=== PATIENT | male | born 1955 | race Caucasian/White ===

== ENCOUNTER → 2017-03-24 | Outpatient (CLI) | payer OTHER ==
[~2017-03-24] MED LIST: ARIP20 PO; CHLO100 PO; CHLO25A PO; CHLO50; CHLO50 PO; CIPR500; CITA20 PO; DOCU100 PO; DOXA1 PO; Driminate50 MG PO; FINA5; FISH1000 PO; FLUV50 PO; HYDACE5 PO; IBUP400 PO; LAVAP17G PO; LOPE2EL PO; MULVITMINE PO; NAPR500 PO; OXYM.05NI; PARO30 PO; PRAV20 PO; PSYL5.85P PO; TAMS.4ER PO; VITAMIN D PO; VITAMIN D31000 UNIT
[2017-03-24 13:39] LABS: Creatinine, Urine Random 24.4 mg/dL (27.00-270.00)
[2017-03-24 13:41] LABS: Microalb/Creat Ratio UR, Rand 40.984 mg/g (0.000-30.000)
== END ==
LOC: LAB 09:00
PROVIDERS: Registered Nurse
DX: E11.49 Type 2 diabetes mellitus with other diabetic neurological complication (principal)
CPT/HCPCS: 82043; 82570

== ENCOUNTER → 2019-05-04 | Outpatient (CLI) | payer OTHER ==
[2019-05-04 12:50] LABS: Source, Urine Clean Catch
[2019-05-04 19:54] LABS: Bilirubin, Urine Neg (Neg); Blood, Urine Neg (Neg); Glucose Qualitative, Urine Neg (Neg); Ketones, Urine Neg (Neg); Leukocyte Esterase, Urine Neg (Neg); Nitrite, Urine Neg (Neg); Protein, Urine Neg (Neg); Urobilinogen, Urine NORM (Normal)
[2019-05-04 20:02] LABS: Appearance, Urine Clear (Clear); Color, Urine Pale Yellow (P-Yellow)
== END ==
LOC: LAB SHORT 12:49
PROVIDERS: Family Medicine
DX: R32 Unspecified urinary incontinence (principal)
CPT/HCPCS: 81003

== ENCOUNTER 2021-07-29 08:45 | Day surgery (SDC) | payer OTHER ==
[~2021-07-29] VITALS: Ht 170.2 cm; Wt 58.7 kg
[~2021-07-29 08:45] MED LIST changes: +ABILIFY MYCITE30 M2 PO; +ACET325 PO; -CHLO50; +DRIMINATE50 M1 PO; +FISH OIL PO; +HYDHCL25 PO; +Kaopectate240 MG PO; +N ACETYL PO; +OXYB5ER PO; +PRENATAL TABLE1 EAC2 PO; -VITAMIN D31000 UNIT; +VITAMIN D31000 UNIT PO; +[UNRECOGNIZED DRUG - OTHER] PO
--- NOTE | 2021-07-29 09:24 | NUR ---
07/29/21 0924 Padmini Romero HISTORY,CHART, MEDICATIONS AND ALLERGIES REVIEWED BEFORE START OF PROCEDURE. PATIENT CONFIRMS NPO STATUS AND AGREES WITH SCHEDULED PROCEDURE. 3-LEAD EKG REVIEWED WITH PHYSICIAN PRIOR TO START OF PROCEDURE. MONITOR INTACT WITH CONTINUOUS PULSE OXIMETRY AND INTERMITTENT BP. SUPPLEMENTAL O2 TO BE TITRATED THROUGHOUT PROCEDURE TO MAINTAIN O2 SATURATION ABOVE 90%. PATIENT DETERMINED TO BE ASA APPROPRIATE FOR MODERATE SEDATION PRIOR TO START OF PROCEDURE BY DR. AGUILERA
--- NOTE | 2021-07-29 10:53 | NUR ---
Patient up to Ambulate independently. Gait steady. Discharge instructions reviewed with patient. Patient verbalizes understanding. Copy given to patient to take home, WELL PT'S CAREGIVER. Patient States Post-Procedure ride home has been arranged WITH CAREGIVER. Discharged via wheelchair to private car for ride home.
== END 2021-07-29 10:53 | disposition home or self-care (01) ==
LOC: ORSCMMR 08:45 → ORD 09:30 → ORSCMMR 09:30
PROVIDERS: Internal Medicine Gastroenterology
PROC: 0DB98ZX Excision of Duodenum, Via Natural or Artificial Opening Endoscopic, Diagnostic (ICD-10-PCS; principal; 2021-07-29 09:30)
PROC: 0DBM8ZX Excision of Descending Colon, Via Natural or Artificial Opening Endoscopic, Diagnostic (ICD-10-PCS; principal; 2021-07-29 09:30)
PROC: 0DB78ZX Excision of Stomach, Pylorus, Via Natural or Artificial Opening Endoscopic, Diagnostic (ICD-10-PCS; principal; 2021-07-29 09:30)
PROC: 0DB58ZX Excision of Esophagus, Via Natural or Artificial Opening Endoscopic, Diagnostic (ICD-10-PCS; principal; 2021-07-29 09:30)
PROC: 0DBK8ZX Excision of Ascending Colon, Via Natural or Artificial Opening Endoscopic, Diagnostic (ICD-10-PCS; principal; 2021-07-29 09:30)
DX: R10.13 Epigastric pain (principal); K62.5 Hemorrhage of anus and rectum; K21.00 Gastro-esophageal reflux disease with esophagitis, without bleeding; B96.81 Helicobacter pylori [H. pylori] as the cause of diseases classified elsewhere; K29.70 Gastritis, unspecified, without bleeding; K59.00 Constipation, unspecified; K64.8 Other hemorrhoids; K44.9 Diaphragmatic hernia without obstruction or gangrene; G47.33 Obstructive sleep apnea (adult) (pediatric); E78.00 Pure hypercholesterolemia, unspecified; R62.59 Other lack of expected normal physiological development in childhood; Z79.899 Other long term (current) drug therapy
CPT/HCPCS: 88305; 88342; A9270; J2250; J3010; J7120

== ENCOUNTER 2022-07-15 07:52 | Day surgery (SDC) | payer OTHER ==
[2022-07-15] VITALS (15 sets, daily range): BP systolic 125–157; BP diastolic 79–105
[~2022-07-15] VITALS: Ht 165.1 cm; Wt 62.9 kg
[~2022-07-15 07:52] MED LIST changes: +Chlorpromazine50 MG PO; +DOC250 PO; +DRAMAMINE25 M2 PO; +FISH OIL 1,2001 EAC7 PO; +HYDPAM50 PO; +Hydroxyzine HCl50 MG PO; +LIDO700A20 TOP; +MAGCIT300 PO; +MIRALAX17 GM PO; +N ACETYLCYSTEINE PO; +Nexium40 MG PO; +OMEP20ER PO; +PROBIOTIC1 EA13 PO; +PSYSENPA PO; +[UNRECOGNIZED DRUG - CODE] PO
--- NOTE | 2022-07-15 08:33 | NUR ---
Ambulatory in Day Surgery. History, Chart, Medications and Allergies reviewed before start of procedure WITH PT AND CAREGIVER. Lungs clear T/O to Auscultation. Patient confirms NPO status and agrees with scheduled surgery. Pre-Op teaching done. Pt verbalizes understanding. Patient States Post-Procedure ride home has been arranged.
--- NOTE | 2022-07-15 08:54 | NUR ---
07/15/22 0854 Chichi Downs HISTORY, CHART, MEDICATIONS AND ALLERGIES REVIEWED BEFORE START OF PROCEDURE. PATIENT CONFIRMS NPO STATUS AND AGREES WITH SCHEDULED PROCEDURE. 3-LEAD EKG REVIEWED WITH PHYSICIAN PRIOR TO START OF PROCEDURE. MONITOR INTACT WITH CONTINUOUS PULSE OXIMETRY,CAPNOGRAPHY, 3-LEAD EKG, INTERMITTENT BP. SUPPLEMENTAL O2 TO BE TITRATED THROUGHOUT PROCEDURE TO MAINTAIN O2 SATURATION ABOVE 90%. PATIENT DETERMINED TO BE ASA APPROPRIATE FOR PROPOFOL SEDATION PRIOR TO START OF PROCEDURE BY .
--- NOTE | 2022-07-15 09:16 | NUR ---
Discharge instructions reviewed with patient and caregiver, Maxine; both verbalize understanding. Copy given to patient to take home. Discharged via wheelchair to private car for ride home.
== END 2022-07-15 09:33 | disposition home or self-care (01) ==
LOC: ORSCMMR 07:52 → ORD 08:30 → ORSCMMR 09:33
PROVIDERS: Internal Medicine Gastroenterology
PROC: 0DB48ZX Excision of Esophagogastric Junction, Via Natural or Artificial Opening Endoscopic, Diagnostic (ICD-10-PCS; principal; 2022-07-15 08:30)
DX: R13.10 Dysphagia, unspecified (principal); Z87.19 Personal history of other diseases of the digestive system; Z87.11 Personal history of peptic ulcer disease; K31.9 Disease of stomach and duodenum, unspecified; K44.9 Diaphragmatic hernia without obstruction or gangrene; G47.30 Sleep apnea, unspecified; E78.00 Pure hypercholesterolemia, unspecified; Z79.899 Other long term (current) drug therapy
CPT/HCPCS: 88305; C1726; J2704; J7120

== ENCOUNTER 2022-10-08 14:13 | Observation (INO) | payer OTHER ==
[~2022-10-08] VITALS: Ht 167.6 cm; Wt 54.2 kg
[2022-10-08 15:37] LABS: Hematocrit 39.7 % (37.0-53.0); Hemoglobin 13.1 g/dL (13.5-17.5); Mean Corpuscular HGB 30.6 pg (26.0-34.0); Mean Corpuscular Volume 93 fL (80-100); Mean Platelet Volume 10.3 fL (9.1-12.4); Platelet Count 265 K/mm3 (150-400); RDW Coefficient Variation 13.7 % (11.7-14.2); RDW Standard Deviation 46.9 fL (35.1-46.3); Red Blood Cell Count 4.28 M/mm3 (4.30-5.90); White Blood Cell Count 29.94 K/mm3 (4.00-11.30)
[2022-10-08 15:56] LABS: Albumin, Blood 3.7 g/dL (3.4-5.0); Bilirubin, Total 0.5 mg/dL (0.1-1.0); Bun/Creatinine Ratio 26.4 (12.0-20.0); Calcium, Blood 9.5 mg/dL (8.5-10.1); Creatinine, Blood 1.06 mg/dL (0.60-1.20); Globulin, Blood 3.7 g/dL (2.2-4.0); Potassium, Blood 4.6 mmol/L (3.5-5.5); Total Protein, Blood 7.4 g/dL (6.4-8.2)
[2022-10-08] MEDS ORDERED: Hydroxyzine HCl50 MG (16:27)
[2022-10-08] MEDS ORDERED: LAMOTRIGINE25 M4 PO (16:29)
[2022-10-08] MEDS ORDERED: ESOMEPRAZOLE MA40 MG PO (16:29)
[2022-10-08 16:50] LABS: BASOPHILS PERCENT MAN 0 % (0-2); EOSINOPHILS PERCENT MAN 0 % (0-6); LYMPHOCYTES % ATYPICAL MANUAL 2 % (0-0); LYMPHOCYTES ABSOLUTE MAN 11.37 K/mm3 (0.84-5.20); LYMPHOCYTES PERCENT MAN 36 % (21-46); MONOCYTES ABSOLUTE MAN 1.49 K/mm3 (0.16-1.47); MONOCYTES PERCENT MAN 5 % (4-13); NEUTROPHILS ABSOLUTE MAN 17.06 K/mm3 (1.96-9.15); SEG NEUTROPHILS PERCENT MAN 57 % (41-73); TOTAL CELLS COUNTED 100
[2022-10-08 18:53] LABS: Source, Urine Voided
[2022-10-08 18:58] LABS: Appearance, Urine Hazy (Clear); Bilirubin, Urine Neg (Neg); Blood, Urine Neg (Neg); Color, Urine Yellow (P-Yellow); Glucose Qualitative, Urine Neg (Neg); Ketones, Urine 3+ (Neg); Leukocyte Esterase, Urine 3+ (Neg); Nitrite, Urine Neg (Neg); Protein, Urine 2+ (Neg); Specific Gravity, Urine 1.025 (1.003-1.022); Urobilinogen, Urine NORM (Normal)
[2022-10-08 19:15] LABS: Squamous Epithelial Cells Few /hpf (Few); Transitional Epithelial Cells Few /hpf (0-Rare)
[2022-10-08 19:16] LABS: Bacteria Many /hpf; Calcium Oxalate Crystals Rare /hpf; White Blood Cells, Urine 50-100 /hpf (0-5)
[2022-10-08] MEDS ORDERED: CHLO50 PO ×2 (20:58→21:01)
[2022-10-08 21:42] VITALS: BP 117/62
[2022-10-09 04:00] VITALS: BP 135/71
--- NOTE | 2022-10-09 04:40 | NUR ---
SHIFT SUMMARY. PT ARRIVED ON UNIT EARLY IN SHIFT. AOX2, PLEASANT, COOPERATIVE WITH CARE. EASILY REDIRECTABLE. STEADY 1-PERSON TRANSFER. EDUCATED SOCK LINING EXAMINER LIGHT BUT HAS NOT USED IT THUS FAR. SATTING WELL ON ROOM AIR. INCONTINENT WITH 1 BM PASSED THUS FAR. FLUIDS RUNNING THROUGHOUT SHIFT PER ORDER. IV FUNCTIONING WELL. NO PAIN REPORTED. PT FOLLOWS DIRECTION WELL. HAS BEEN SLEEPING THROUGH MOST OF SHIFT AFTER MED PASS AND ASSESSMENT. BED LOCKED IN LOWEST POSITION. CALL LIGHT LEFT WITHIN REACH.
[2022-10-09 05:58] LABS: Hematocrit 33.9 % (37.0-53.0); Hemoglobin 10.8 g/dL (13.5-17.5); Mean Corpuscular HGB 30.3 pg (26.0-34.0); Mean Corpuscular HGB Conc 31.9 g/dL (31.5-36.5); Mean Corpuscular Volume 95 fL (80-100); Mean Platelet Volume 10.4 fL (9.1-12.4); Platelet Count 231 K/mm3 (150-400); RDW Coefficient Variation 13.7 % (11.7-14.2); RDW Standard Deviation 47.8 fL (35.1-46.3); Red Blood Cell Count 3.57 M/mm3 (4.30-5.90); White Blood Cell Count 27.21 K/mm3 (4.00-11.30)
[2022-10-09 07:17] VITALS: BP 115/72
[2022-10-09 15:43] VITALS: BP 104/74
--- NOTE | 2022-10-09 19:05 | NUR ---
PATIENT IS ALERT AND ORIENTED TO SELF AND FOLLOWING DIRECTIONS. HE C/O LEFT ABDOMINAL PAIN AND PAIN WITH SWALLOWING. HE DOES GAG WHEN TAKING BITES OF JELLO BUT TOLERATES LIQUIDS FINE. THE PATIENT WENT FOR THE ESOPHAGRAM THIS MORNING.
[2022-10-09 20:28] VITALS: BP 111/72
[2022-10-10 03:20] VITALS: BP 118/67
--- NOTE | 2022-10-10 05:00 | NUR ---
SHIFT SUMMARY ADMITTED FOR N/V. POOR APPETITE AND WT. LOSS. FULL CODE. 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 BARIUM SWALLOW AND ESOPHOGRAM PERFORMED ON PREVIOUS SHIFT. HX OF ESOPHAGEAL STRICTURES AND DILATIONS. PLAN IS TO ADVANCE DIET TOLERATED, UPPER ENDOSCOPY & DILATION VERSUS DC HOME. RX CRUSHED W/APPLESAUCE. 1 ASSIST W/FWW - BRP. NS @ 100 ML/HR INFUSING.
[2022-10-10 06:08] LABS: BASOPHILS ABSOLUTE AUTO 0.08 K/mm3 (0.00-0.23); BASOPHILS PERCENT AUTO 0 % (0-2); EOSINOPHILS ABSOLUTE AUTO 0.52 K/mm3 (0.00-0.68); EOSINOPHILS PERCENT AUTO 2 % (0-6); Hematocrit 33.7 % (37.0-53.0); Hemoglobin 10.8 g/dL (13.5-17.5); IMMATURE GRAN PERCENT AUTO 0 % (0-1); LYMPHOCYTES ABSOLUTE AUTO 13.27 K/mm3 (0.84-5.20); LYMPHOCYTES PERCENT AUTO 55 % (21-46); MONOCYTES ABSOLUTE AUTO 0.92 K/mm3 (0.16-1.47); MONOCYTES PERCENT AUTO 4 % (4-13); Mean Corpuscular HGB 30.4 pg (26.0-34.0); Mean Corpuscular Volume 95 fL (80-100); Mean Platelet Volume 10.1 fL (9.1-12.4); NEUTROPHILS ABSOLUTE AUTO 9.36 K/mm3 (1.96-9.15); NEUTROPHILS PERCENT AUTO 39 % (41-73); Platelet Count 221 K/mm3 (150-400); RDW Coefficient Variation 13.8 % (11.7-14.2); RDW Standard Deviation 47.8 fL (35.1-46.3); Red Blood Cell Count 3.55 M/mm3 (4.30-5.90); White Blood Cell Count 24.25 K/mm3 (4.00-11.30)
[2022-10-10 07:09] LABS: Bun/Creatinine Ratio 17.5 (12.0-20.0); Calcium, Blood 8.4 mg/dL (8.5-10.1); Creatinine, Blood 0.97 mg/dL (0.60-1.20); Potassium, Blood 3.9 mmol/L (3.5-5.5)
[2022-10-10 07:16] VITALS: BP 107/63
[2022-10-10] MEDS ORDERED: AMOCLA875 PO (13:52)
--- NOTE | 2022-10-10 16:05 | NUR ---
DISCHARGE NOTE PT DISCHARGED TO HOME, PICKED UP BY ONE OF HIS CAREGIVERS. IV REMOVED. DISCHARGE INFORMATION AND EDUCATION PROVIDED TO THE PT. MEDICATIONS FAXED TO THE PHARMACY OF HIS CHOICE. FIRE SAFETY PROTOCOLS AND PROCEDURES MAINTAINED THROUGHOUT THE SHIFT.
== END 2022-10-10 15:32 | disposition home or self-care (01) ==
LOC: ER 14:13 → MEDS 14:14
PROVIDERS: Emergency Medicine; Family Medicine; Nurse Practitioner Acute Care; Physician Assistant; ADMIT Internal Medicine
DX: K22.2 Esophageal obstruction (principal); D72.829 Elevated white blood cell count, unspecified; N39.0 Urinary tract infection, site not specified; R62.50 Unspecified lack of expected normal physiological development in childhood; F91.9 Conduct disorder, unspecified; E78.5 Hyperlipidemia, unspecified; D64.9 Anemia, unspecified; N18.30 Chronic kidney disease, stage 3 unspecified; G47.33 Obstructive sleep apnea (adult) (pediatric); Z79.899 Other long term (current) drug therapy
CPT/HCPCS: 36415; 71046; 74220; 80048; 80053; 81001; 85025; 85027; 87077; 87086; 87186; 96361; 96372; 96374; 99285-25; A9270; G0378; J1650; J2405; J7030

== ENCOUNTER 2022-11-02 12:30 | Inpatient (IN) | payer OTHER ==
[~2022-11-02] VITALS: Ht 165.1 cm; Wt 54.0 kg
[~2022-11-02 12:30] MED LIST changes: +AMOCLA875 PO; +ESOMEPRAZOLE MA40 MG PO; +Hydroxyzine HCl50 MG; +LAMOTRIGINE25 M4 PO
[2022-11-02 14:29] LABS: Hematocrit 36.9 % (37.0-53.0); Hemoglobin 11.9 g/dL (13.5-17.5); Mean Corpuscular HGB Conc 32.2 g/dL (31.5-36.5); Mean Corpuscular Volume 93 fL (80-100); Mean Platelet Volume 10.6 fL (9.1-12.4); Platelet Count 177 K/mm3 (150-400); RDW Coefficient Variation 14.1 % (11.7-14.2); RDW Standard Deviation 47.5 fL (35.1-46.3); Red Blood Cell Count 3.97 M/mm3 (4.30-5.90); White Blood Cell Count 30.76 K/mm3 (4.00-11.30)
[2022-11-02 14:49] LABS: Albumin, Blood 3.3 g/dL (3.4-5.0); Albumin/Globulin Ratio 0.9 (0.8-1.8); Bilirubin, Total 0.6 mg/dL (0.1-1.0); Calcium, Blood 9.7 mg/dL (8.5-10.1); Creatinine, Blood 1.16 mg/dL (0.60-1.20); Globulin, Blood 3.5 g/dL (2.2-4.0); Potassium, Blood 4.6 mmol/L (3.5-5.5); Total Protein, Blood 6.8 g/dL (6.4-8.2)
[2022-11-02 15:53] LABS: BAND PERCENT MAN 12 % (0-8); BASOPHILS PERCENT MAN 0 % (0-2); EOSINOPHILS PERCENT MAN 0 % (0-6); LYMPHOCYTES ABSOLUTE MAN 11.38 K/mm3 (0.84-5.20); LYMPHOCYTES PERCENT MAN 37 % (21-46); MONOCYTES ABSOLUTE MAN 2.46 K/mm3 (0.16-1.47); MONOCYTES PERCENT MAN 8 % (4-13); NEUTROPHILS ABSOLUTE MAN 16.91 K/mm3 (1.96-9.15); SEG NEUTROPHILS PERCENT MAN 43 % (41-73); TOTAL CELLS COUNTED 100
[2022-11-02 16:12] LABS: Source, Urine Clean Catch
[2022-11-02 16:21] LABS: Appearance, Urine Cloudy (Clear); Bilirubin, Urine Neg (Neg); Blood, Urine 3+ (Neg); Color, Urine Yellow (P-Yellow); Glucose Qualitative, Urine Neg (Neg); Ketones, Urine 1+ (Neg); Leukocyte Esterase, Urine 3+ (Neg); Nitrite, Urine Neg (Neg); Protein, Urine 2+ (Neg); Specific Gravity, Urine 1.025 (1.003-1.022); Urobilinogen, Urine NORM (Normal)
[2022-11-02 16:32] LABS: Calcium Oxalate Crystals Few /hpf
[2022-11-02 16:33] LABS: Bacteria Many /hpf; Squamous Epithelial Cells Few /hpf (Few); White Blood Cells, Urine TNTC /hpf (0-5)
[2022-11-02 23:14] VITALS: BP 121/67
--- NOTE | 2022-11-03 00:57 | NUR ---
ADMIT NOTE PT BROUGHT TO ROOM FROM [facility] BED. PT ON 2 L O2 VIA NC AND SATS ABOVE 90%. PT ORIENTED TO ROOM WITH CALL LIGHT WITHIN REACH AND BED IN LOWEST POSITION WITH BED ALARM SET.
[2022-11-03] MEDS ORDERED: REMERON1510 PO (01:08)
[2022-11-03] MEDS ORDERED: [UNRECOGNIZED DRUG - OTHER] PO (01:10)
[2022-11-03 01:27] VITALS: BP 106/60
[2022-11-03 04:24] VITALS: BP 112/71
--- NOTE | 2022-11-03 04:26 | NUR ---
SHIFT SUMMARY PT TRANSFERRED TO UNIT AT 2301. PT IS DEVELOPMENTALLY DELAYED, ANSWERS BASIC QUESTIONS AND FOLLOWS SIMPLE COMMANDS. UNABLE TO DO MED REC ON ADMISSION DUE TO PTS COGNITIVE ABILITY. PT STATES HE DOES NOT KNOW HIS MEDICATIONS AND TO ASK HIS CAREGIVER "RYNE" WHO SHOULD BE IN TODAY. PT WAS ON 2L O2 VIA NC BUT HAD AN EPISODE WHERE HE SATS DROPPED TO 87%. INCREASED O2 TO 5L AND PT HAS BEEN TOLERATING WELL AND SATS HAVE BEEN ABOVE 92%. PT IS ON CONTINUOUS O2 MONITORING. PT IS CURRENTLY ON ENHANCED PRECAUTIONS, COVID TEST IS NEGATIVE, RESPIRATORY PANEL NEEDS TO BE COLLECTED. ORDERED CARE MANAGMENT AND SPEECH THERAPY CONSULT. PT WAS HAVING SOME TROUBLE WITH SPITTING OUT SPUTUM. GAVE PT YANKER AND EDUCATED ON USE. BED ALARM IN PLACE WITH BED IN THE LOWEST POSITION WITH CALL LIGHT WITHIN REACH.
[2022-11-03 05:09] LABS: Hematocrit 33.2 % (37.0-53.0); Hemoglobin 10.7 g/dL (13.5-17.5); Mean Corpuscular HGB 29.8 pg (26.0-34.0); Mean Corpuscular HGB Conc 32.2 g/dL (31.5-36.5); Mean Corpuscular Volume 93 fL (80-100); Mean Platelet Volume 10.5 fL (9.1-12.4); Platelet Count 167 K/mm3 (150-400); RDW Coefficient Variation 14.1 % (11.7-14.2); RDW Standard Deviation 47.6 fL (35.1-46.3); Red Blood Cell Count 3.59 M/mm3 (4.30-5.90); White Blood Cell Count 20.05 K/mm3 (4.00-11.30)
[2022-11-03 05:35] LABS: Albumin, Blood 2.8 g/dL (3.4-5.0); Bilirubin, Total 0.9 mg/dL (0.1-1.0); Bun/Creatinine Ratio 17.1 (12.0-20.0); Calcium, Blood 8.4 mg/dL (8.5-10.1); Creatinine, Blood 1.11 mg/dL (0.60-1.20); Globulin, Blood 2.9 g/dL (2.2-4.0); Potassium, Blood 3.9 mmol/L (3.5-5.5); Total Protein, Blood 5.7 g/dL (6.4-8.2)
[2022-11-03 06:12] LABS: BAND PERCENT MAN 5 % (0-8); BASOPHILS PERCENT MAN 0 % (0-2); EOSINOPHILS PERCENT MAN 1 % (0-6); LYMPHOCYTES % ATYPICAL MANUAL 3 % (0-0); LYMPHOCYTES ABSOLUTE MAN 6.41 K/mm3 (0.84-5.20); LYMPHOCYTES PERCENT MAN 29 % (21-46); METAMYELOCYTE PERCENT MAN 1 % (0-0); MONOCYTES PERCENT MAN 3 % (4-13); NEUTROPHILS ABSOLUTE MAN 12.63 K/mm3 (1.96-9.15); SEG NEUTROPHILS PERCENT MAN 58 % (41-73); TOTAL CELLS COUNTED 100
[2022-11-03 07:45] VITALS: BP 102/61
[2022-11-03 09:00] LABS: Adenovirus Not Detected (NOT DETECT); Bordetella pertussis Not Detected (NOT DETECT); Chlamydophila pneumoniae Not Detected (NOT DETECT); Coronavirus 229E Not Detected (NOT DETECT); Coronavirus HKU1 Not Detected (NOT DETECT); Coronavirus NL63 Not Detected (NOT DETECT); Coronavirus OC43 Not Detected (NOT DETECT); Human Metapneumovirus Not Detected (NOT DETECT); Human Rhinovirus/Enterovirus Detected (NOT DETECT); Influenza A/2009-H1 Not Detected (NOT DETECT); Influenza A/H1 Not Detected (NOT DETECT); Influenza A/H3 Not Detected (NOT DETECT); Influenza B Not Detected (NOT DETECT); Parainfluenza Virus 1 Not Detected (NOT DETECT); Parainfluenza Virus 2 Not Detected (NOT DETECT); Parainfluenza Virus 3 Not Detected (NOT DETECT); Parainfluenza Virus 4 Not Detected (NOT DETECT); Respiratory Syncytial Virus Not Detected (NOT DETECT); SARS-Cov-2 (COVID-19), BioFire Not Detected (NOT DETECT)
[2022-11-03 09:01] LABS: Mycoplasma pneumoniae Not Detected (NOT DETECT)
[2022-11-03] MEDS ORDERED: FISH OIL PO (16:12)
[2022-11-03 16:22] VITALS: BP 104/67
--- NOTE | 2022-11-03 18:20 | NUR ---
SHIFT SUMMARY PT WORKED WITH OT/PT TODAY. AMBULATING WELL ONLY WITH ASSISTANCE WITH CORDS AND LINES. TITRATED DOWN TO 2L FROM 4L THIS MORNING. AND THEN FROM 2L TO RA THIS AFTERNOON. TOLERATING WELL. PT TESTED POSITIVE FOR RHINO VIRUS. MED REC UPDATED FROM NURSING HOME FAX. PT SEEN BY [facility]. NO OTHER ACUTE CHANGES IN ASSESSMENT AT THIS TIME. CALL LIGHT IN REACH. UP IN CHAIR, COLORING. PT HOPEFUL TO GO HOME TOMORROW. OVERALL, POOR APPETITE, SEEMS TO BE DUE TO THE TEXTURE OF HIS FOOD. PT IS NOT A FAN OF [place]. NO OTHER ACUTE CHANGES IN ASSESSMENT AT THIS TIME. VS REVIEWED. CALL LIGHT IN REACH.
[2022-11-03 20:54] VITALS: BP 119/69
[2022-11-04 02:29] VITALS: BP 115/68
--- NOTE | 2022-11-04 04:53 | NUR ---
SHIFT SUMMARY PT A&O X4, HAS CONGENITAL DEVELOPMENTAL DELAY. CALM AND COOPERATIVE WITH CARE. PT IS CURRENTLY ON RA, TOLERATING WELL WITH SATS ABOVE 92%. INDEPENDENT USING THE URINAL, SBA TO BATHROOM DUE TO LINES. DENIES ANY PAIN, DISCOMFORT, OR SOB. ST ORDERS IN PLACE AND FOLLOWED. PT DOES NOT LIKE PUREE DIET, OFFERED THICKENED SPRITE AND ICECREAM. BED IN LOWEST POSITION WITH CALL LIGHT IN REACH AND BED ALARM SET. PT CALLS APPROPRIATELY.
[2022-11-04 05:41] LABS: Hematocrit 30.1 % (37.0-53.0); Hemoglobin 9.7 g/dL (13.5-17.5); Mean Corpuscular HGB Conc 32.2 g/dL (31.5-36.5); Mean Corpuscular Volume 93 fL (80-100); Mean Platelet Volume 10.8 fL (9.1-12.4); Platelet Count 169 K/mm3 (150-400); RDW Coefficient Variation 14.1 % (11.7-14.2); RDW Standard Deviation 47.7 fL (35.1-46.3); Red Blood Cell Count 3.23 M/mm3 (4.30-5.90); White Blood Cell Count 17.78 K/mm3 (4.00-11.30)
[2022-11-04 06:09] LABS: BAND PERCENT MAN 1 % (0-8); BASOPHILS ABSOLUTE MAN 0.17 K/mm3 (0.00-0.23); BASOPHILS PERCENT MAN 1 % (0-2); EOSINOPHILS ABSOLUTE MAN 1.24 K/mm3 (0.00-0.68); EOSINOPHILS PERCENT MAN 7 % (0-6); LYMPHOCYTES % ATYPICAL MANUAL 4 % (0-0); LYMPHOCYTES ABSOLUTE MAN 5.33 K/mm3 (0.84-5.20); LYMPHOCYTES PERCENT MAN 26 % (21-46); MONOCYTES ABSOLUTE MAN 0.53 K/mm3 (0.16-1.47); MONOCYTES PERCENT MAN 3 % (4-13); NEUTROPHILS ABSOLUTE MAN 10.49 K/mm3 (1.96-9.15); SEG NEUTROPHILS PERCENT MAN 58 % (41-73); TOTAL CELLS COUNTED 100
[2022-11-04 06:11] LABS: Albumin, Blood 2.4 g/dL (3.4-5.0); Albumin/Globulin Ratio 0.8 (0.8-1.8); Bilirubin, Total 0.6 mg/dL (0.1-1.0); Bun/Creatinine Ratio 12.6 (12.0-20.0); Calcium, Blood 8.2 mg/dL (8.5-10.1); Creatinine, Blood 0.87 mg/dL (0.60-1.20); Potassium, Blood 3.6 mmol/L (3.5-5.5); Total Protein, Blood 5.4 g/dL (6.4-8.2)
[2022-11-04 07:44] VITALS: BP 111/72
[2022-11-04 15:19] VITALS: BP 110/68
--- NOTE | 2022-11-04 18:01 | NUR ---
SHIFT SUMMARY PT AOX2-3, MAKES HIS NEEDS KNOWN. NO COMPLAINTS THIS SHIFT. PT'S APPETITE SEEMS TO BE IMPROVING. PT HAD A LARGE BM THIS SHIFT. SPOKE WITH HIS CAREGIVER THIS SHIFT FOR UPDATES. PT IS A SBA. CALL LIGHT WITHIN REACH, BED IN THE LOWEST POSITION. WILL REPORT TO ONCOMING NURSE.
[2022-11-04 20:43] VITALS: BP 123/71
[2022-11-05 02:10] VITALS: BP 128/75
--- NOTE | 2022-11-05 05:17 | NUR ---
SHIFT SUMMARY NO ACUTE EVENTS DURING SHIFT. PATIENT ABLE TO MAKE NEEDS KNOW. BED IN LOW POSITION. CALL LIGHT IN REACH. PATIENT CALLS APPROPRIATELY.
[2022-11-05 05:42] LABS: Hematocrit 30.3 % (37.0-53.0); Hemoglobin 9.6 g/dL (13.5-17.5); Mean Corpuscular HGB 29.5 pg (26.0-34.0); Mean Corpuscular HGB Conc 31.7 g/dL (31.5-36.5); Mean Corpuscular Volume 93 fL (80-100); Mean Platelet Volume 10.3 fL (9.1-12.4); Platelet Count 196 K/mm3 (150-400); RDW Standard Deviation 47.5 fL (35.1-46.3); Red Blood Cell Count 3.25 M/mm3 (4.30-5.90); White Blood Cell Count 18.34 K/mm3 (4.00-11.30)
[2022-11-05 06:11] LABS: Bun/Creatinine Ratio 9.7 (12.0-20.0); Calcium, Blood 8.4 mg/dL (8.5-10.1); Creatinine, Blood 0.93 mg/dL (0.60-1.20); Potassium, Blood 3.3 mmol/L (3.5-5.5)
[2022-11-05 06:45] LABS: BASOPHILS PERCENT MAN 0 % (0-2); EOSINOPHILS PERCENT MAN 0 % (0-6); LYMPHOCYTES % ATYPICAL MANUAL 1 % (0-0); LYMPHOCYTES PERCENT MAN 65 % (21-46); MONOCYTES ABSOLUTE MAN 0.73 K/mm3 (0.16-1.47); MONOCYTES PERCENT MAN 4 % (4-13); SEG NEUTROPHILS PERCENT MAN 30 % (41-73); TOTAL CELLS COUNTED 100
[2022-11-05 07:38] VITALS: BP 113/71
[2022-11-05] MEDS ORDERED: OMEGA-3 FISH O1 EA13 PO (14:23)
[2022-11-05] MEDS ORDERED: AMOCLA875 PO (14:24)
--- NOTE | 2022-11-05 16:09 | NUR ---
DISCHARGE NOTE PT DISCHARGED TO HOME WITH HIS CAREGIVER. IV REMOVED. PERSONAL BELONGINGS RETURNED. DISCHARGE MEDICATIONS AND INFORMATION PROVIDED. MEDICATIONS FAXED TO THE PHARMACY OF HIS CHOICE.
== END 2022-11-05 15:54 | disposition home or self-care (01) | DRG 871 ==
LOC: ER 12:30 → MEDS 20:44
PROVIDERS: Family Medicine; Hospitalist; Physician Assistant; ADMIT Hospitalist
DX: A41.81 Sepsis due to Enterococcus (principal); J12.89 Other viral pneumonia; J96.01 Acute respiratory failure with hypoxia; J69.0 Pneumonitis due to inhalation of food and vomit; N39.0 Urinary tract infection, site not specified; Z16.11 Resistance to penicillins; Z66 Do not resuscitate; Z20.822 Contact with and (suspected) exposure to COVID-19; R13.10 Dysphagia, unspecified; B97.89 Other viral agents as the cause of diseases classified elsewhere; G47.30 Sleep apnea, unspecified; D63.8 Anemia in other chronic diseases classified elsewhere; N18.30 Chronic kidney disease, stage 3 unspecified; N40.0 Benign prostatic hyperplasia without lower urinary tract symptoms; E78.00 Pure hypercholesterolemia, unspecified; K22.2 Esophageal obstruction; Z90.49 Acquired absence of other specified parts of digestive tract; Z98.890 Other specified postprocedural states
CPT/HCPCS: 0202U; 36415; 71045; 80048; 80053; 81001; 85025; 85060; 87077; 87086; 87186; 92610; 94664; 94762; 96361; 96365; 97110; 97116; 97161; 97165; 97530; 97535; 99285-25; A9270; C9113; J1650; J2543; J7030

== ENCOUNTER 2023-01-06 21:00 | Emergency (ER) | payer OTHER ==
[~2023-01-06] VITALS: Ht 167.6 cm; Wt 72.6 kg
[~2023-01-06 21:00] MED LIST changes: +OMEGA-3 FISH O1 EA13 PO; +PROM25 PO; +REMERON1510 PO; +[UNRECOGNIZED DRUG - OTHER] PO
[2023-01-06 21:33] LABS: Hematocrit 34.9 % (37.0-53.0); Hemoglobin 10.9 g/dL (13.5-17.5); Mean Corpuscular HGB 30.3 pg (26.0-34.0); Mean Corpuscular HGB Conc 31.2 g/dL (31.5-36.5); Mean Corpuscular Volume 97 fL (80-100); Platelet Count 140 K/mm3 (150-400); RDW Coefficient Variation 16.1 % (11.7-14.2); RDW Standard Deviation 57.6 fL (35.1-46.3); White Blood Cell Count 23.79 K/mm3 (4.00-11.30)
[2023-01-06 21:55] LABS: Albumin, Blood 3.4 g/dL (3.4-5.0); Albumin/Globulin Ratio 1.1 (0.8-1.8); Bilirubin, Total 0.3 mg/dL (0.1-1.0); Bun/Creatinine Ratio 28.4 (12.0-20.0); Calcium, Blood 9.4 mg/dL (8.5-10.1); Creatinine, Blood 0.95 mg/dL (0.60-1.20); Globulin, Blood 3.2 g/dL (2.2-4.0); Potassium, Blood 4.1 mmol/L (3.5-5.5); Total Protein, Blood 6.6 g/dL (6.4-8.2)
[2023-01-06 22:21] LABS: Source, Urine Clean Catch
[2023-01-06 22:35] LABS: BASOPHILS PERCENT MAN 0 % (0-2); EOSINOPHILS ABSOLUTE MAN 0.23 K/mm3 (0.00-0.68); EOSINOPHILS PERCENT MAN 1 % (0-6); LYMPHOCYTES ABSOLUTE MAN 17.36 K/mm3 (0.84-5.20); LYMPHOCYTES PERCENT MAN 73 % (21-46); MONOCYTES ABSOLUTE MAN 0.71 K/mm3 (0.16-1.47); MONOCYTES PERCENT MAN 3 % (4-13); NEUTROPHILS ABSOLUTE MAN 5.47 K/mm3 (1.96-9.15); SEG NEUTROPHILS PERCENT MAN 23 % (41-73); TOTAL CELLS COUNTED 100
[2023-01-06 22:38] LABS: Appearance, Urine Clear (Clear); Bilirubin, Urine Neg (Neg); Blood, Urine Neg (Neg); Glucose Qualitative, Urine Neg (Neg); Ketones, Urine Neg (Neg); Leukocyte Esterase, Urine 1+ (Neg); Nitrite, Urine Neg (Neg); Protein, Urine Neg (Neg); Specific Gravity, Urine 1.005 (1.003-1.022); Urobilinogen, Urine NORM (Normal)
[2023-01-06 22:55] VITALS: BP 122/74
[2023-01-06 23:05] LABS: Influenza A, PCR NEGATIVE (NEGATIVE); Influenza B, PCR NEGATIVE (NEGATIVE); Resp Syncytial Virus, PCR NEGATIVE (NEGATIVE); SARS-Cov-2 (COVID-19) PCR, MMC NEGATIVE (NEGATIVE)
[2023-01-06] MEDS ORDERED: FISH OIL 1,0001 EA10 PO (23:13)
[2023-01-06 23:30] LABS: Color, Urine Pale Yellow (P-Yellow)
[2023-01-06 23:31] LABS: Bacteria Few /hpf; Red Blood Cells, Urine 0-2 /hpf (0-2); Squamous Epithelial Cells Not Seen /hpf (Few); White Blood Cells, Urine 0-2 /hpf (0-5)
== END 2023-01-06 23:45 | disposition home or self-care (01) ==
LOC: ER 21:00
PROVIDERS: Physician Assistant; Student in an Organized Health Care Education/Training Program
DX: J02.8 Acute pharyngitis due to other specified organisms (principal); B97.89 Other viral agents as the cause of diseases classified elsewhere; C95.90 Leukemia, unspecified not having achieved remission; Z79.899 Other long term (current) drug therapy; Z20.822 Contact with and (suspected) exposure to COVID-19
CPT/HCPCS: 0241U; 71046; 80053; 81001; 85025; 87077; 87086; 87186; 99283-25

== ENCOUNTER 2023-01-16 20:17 | Emergency (ER) | payer OTHER ==
[~2023-01-16] VITALS: Ht 167.6 cm; Wt 68.0 kg
[~2023-01-16 20:17] MED LIST changes: +FISH OIL 1,0001 EA10 PO
[2023-01-16 20:54] LABS: BASOPHILS PERCENT AUTO 0 % (0-2); EOSINOPHILS ABSOLUTE AUTO 0.26 K/mm3 (0.00-0.68); EOSINOPHILS PERCENT AUTO 1 % (0-6); Hematocrit 36.9 % (37.0-53.0); Hemoglobin 11.7 g/dL (13.5-17.5); Mean Corpuscular HGB 30.4 pg (26.0-34.0); Mean Corpuscular HGB Conc 31.7 g/dL (31.5-36.5); Mean Corpuscular Volume 96 fL (80-100); Mean Platelet Volume 11.5 fL (9.1-12.4); Platelet Count 184 K/mm3 (150-400); RDW Coefficient Variation 15.3 % (11.7-14.2); RDW Standard Deviation 53.6 fL (35.1-46.3); Red Blood Cell Count 3.85 M/mm3 (4.30-5.90); White Blood Cell Count 30.09 K/mm3 (4.00-11.30)
[2023-01-16 21:13] LABS: IMMATURE GRAN PERCENT AUTO 0 % (0-1); LYMPHOCYTES ABSOLUTE AUTO 23.23 K/mm3 (0.84-5.20); LYMPHOCYTES PERCENT AUTO 77 % (21-46); MONOCYTES ABSOLUTE AUTO 0.59 K/mm3 (0.16-1.47); MONOCYTES PERCENT AUTO 2 % (4-13); NEUTROPHILS ABSOLUTE AUTO 5.81 K/mm3 (1.96-9.15); NEUTROPHILS PERCENT AUTO 19 % (41-73)
[2023-01-16 21:18] LABS: Albumin, Blood 3.7 g/dL (3.4-5.0); Bilirubin, Total 0.2 mg/dL (0.1-1.0); Bun/Creatinine Ratio 28.7 (12.0-20.0); Calcium, Blood 9.1 mg/dL (8.5-10.1); Creatinine, Blood 1.08 mg/dL (0.60-1.20); Globulin, Blood 3.7 g/dL (2.2-4.0); Potassium, Blood 4.5 mmol/L (3.5-5.5); Total Protein, Blood 7.4 g/dL (6.4-8.2)
[2023-01-16] MEDS ORDERED: PRAHYD1AEA PR (23:04)
[2023-01-16 23:20] VITALS: BP 124/79
== END 2023-01-16 23:21 | disposition home or self-care (01) ==
LOC: ER 20:17
PROVIDERS: Emergency Medicine
DX: K64.4 Residual hemorrhoidal skin tags (principal); Z79.899 Other long term (current) drug therapy
CPT/HCPCS: 80053; 85025; 86850; 86900; 86901; 99283

== ENCOUNTER 2023-06-12 20:11 | Emergency (ER) | payer OTHER ==
[~2023-06-12] VITALS: Ht 167.6 cm; Wt 63.5 kg
[~2023-06-12 20:11] MED LIST changes: +BRUKINSA80 MG PO; +MULVITA PO; +NITR100CA PO; +PRAHYD1AEA PR
[2023-06-12 21:15] VITALS: BP 137/85
== END 2023-06-12 21:25 | disposition home or self-care (01) ==
LOC: ER 20:11
DX: R03.0 Elevated blood-pressure reading, without diagnosis of hypertension (principal); E11.9 Type 2 diabetes mellitus without complications; R41.89 Other symptoms and signs involving cognitive functions and awareness; Z79.899 Other long term (current) drug therapy
CPT/HCPCS: 93005; 93010; 99283-25

== ENCOUNTER → 2024-07-28 | Outpatient (CLI) | payer OTHER ==
[2024-07-28 15:01] LABS: Hematocrit 44.5 % (37.0-53.0); Hemoglobin 14.4 g/dL (13.5-17.5); Mean Corpuscular HGB 31.6 pg (26.0-34.0); Mean Corpuscular HGB Conc 32.4 g/dL (31.5-36.5); Mean Corpuscular Volume 98 fL (80-100); Mean Platelet Volume 11.1 fL (9.1-12.4); Platelet Count 153 K/mm3 (150-400); RDW Coefficient Variation 13.8 % (11.7-14.2); RDW Standard Deviation 49.5 fL (35.1-46.3); Red Blood Cell Count 4.55 M/mm3 (4.30-5.90); White Blood Cell Count 10.72 K/mm3 (4.00-11.30)
[2024-07-28 16:36] LABS: BAND PERCENT MAN 1 % (0-8); BASOPHILS ABSOLUTE MAN 0.21 K/mm3 (0.00-0.23); BASOPHILS PERCENT MAN 2 % (0-2); EOSINOPHILS ABSOLUTE MAN 0.42 K/mm3 (0.00-0.68); EOSINOPHILS PERCENT MAN 4 % (0-6); LYMPHOCYTES ABSOLUTE MAN 4.93 K/mm3 (0.84-5.20); LYMPHOCYTES PERCENT MAN 46 % (21-46); MONOCYTES ABSOLUTE MAN 0.53 K/mm3 (0.16-1.47); MONOCYTES PERCENT MAN 5 % (4-13); SEG NEUTROPHILS PERCENT MAN 42 % (41-73); TOTAL CELLS COUNTED 100
== END | disposition home or self-care (01) ==
LOC: LAB 14:36 → LAB SHORT 14:36
PROVIDERS: Nurse Practitioner Psychiatric/Mental Health
DX: C91.10 Chronic lymphocytic leukemia of B-cell type not having achieved remission (principal)
CPT/HCPCS: 85025